=== PATIENT | female | born 1965 | race Caucasian/White ===

== ENCOUNTER 2017-10-07 09:57 | Outpatient (CLI) | payer OTHER ==
--- NOTE | 2017-10-13 11:47 | Mammography Report ---
EXAM: DIGITAL BILATERAL SCREENING MAMMOGRAM: 10/07/2017 CLINICAL INDICATION: A 52-year-old with history of late childbearing, for screening. COMPARISON: 09/2016, 07/2015, 06/2014, 07/2013, 06/2012, 07/2011, 06/2010. FINDINGS: The breasts again demonstrate heterogeneously dense fibroglandular parenchyma bilaterally. Coarse, typically benign calcifications are present. No suspicious masses, clustered microcalcifications, or regions of architectural distortion are identified. IMPRESSION: BENIGN FINDINGS. RECOMMENDATIONS: Routine annual screening unless otherwise clinically indicated. BIRADS 2 Benign findings. STANDARD QUALIFYING STATEMENTS: 1. This examination was reviewed with the aid of Computer-Aided Detection (CAD). 2. A negative or benign imaging report should not delay biopsy if clinically suspicious findings are present. Consider surgical consultation if warranted. More than 5% of cancers are not identified by imaging. 3. Dense breasts may obscure an underlying neoplasm. TD: 10/08/2017 16:57 [facility]
== END 2017-10-07 09:58 | disposition home or self-care (01) ==
LOC: DI.S 09:57
PROVIDERS: ATTEND Physician Assistant
DX: Z12.31 Encounter for screening mammogram for malignant neoplasm of breast (principal)
CPT/HCPCS: 77067

== ENCOUNTER 2018-11-03 15:58 | Outpatient (CLI) | payer OTHER ==
--- NOTE | 2018-11-04 09:21 | Mammography Report ---
Reason: ENCOUNTER FOR SCREENING MAMMOGRAM FOR MALIGNANT NE Procedure Date: 11/03/2018 Accession Number: [id number] / [id number] Procedure: JOSE A - Screening Mammo w/Dat CPT Code: FULL RESULT: EXAM: Screening Mammo w/Dat DATE: 11/03/2018 4:43 PM CLINICAL HISTORY: Screening encounter. History of late childbearing. TECHNIQUE: Bilateral CC and MLO views were obtained. COMPARISON: 10/07/2017 through 07/24/2014. FINDINGS: The breasts demonstrate heterogeneously dense fibroglandular parenchyma bilaterally. There are coarse typically benign bilateral calcifications. No suspicious masses, clustered microcalcifications, or regions of architectural distortion are identified. IMPRESSION: Benign findings RECOMMENDATION: Routine annual screening unless otherwise clinically indicated. BIRADS CATEGORY 2: Benign findings STANDARD QUALIFYING STATEMENTS: 1. This examination was not reviewed with the aid of Computer-Aided Detection (CAD). 2. A negative or benign imaging report should not preclude biopsy if clinically suspicious findings are present. 3. Dense breasts may obscure an underlying neoplasm. 4. This examination was reviewed with the aid of 3D breast imaging (tomosynthesis).
== END 2018-11-03 15:59 | disposition home or self-care (01) ==
LOC: DI 15:58
PROVIDERS: ATTEND Physician Assistant
DX: Z12.31 Encounter for screening mammogram for malignant neoplasm of breast (principal)
CPT/HCPCS: 77063; 77067

== ENCOUNTER 2019-11-09 10:05 | Outpatient (CLI) | payer BC, OTHER ==
--- NOTE | 2019-11-10 08:30 | Mammography Report ---
Reason: ROUTINE MAMMO Procedure Date: 11/09/2019 Accession Number: [id number] / [id number] Procedure: MGS - Screening Mammo Dig Bilat CPT Code: Final Report FULL RESULT: EXAM: Screening Mammo Dig Bilat DATE: 11/09/2019 10:21 AM CLINICAL HISTORY: Screening encounter. History of late childbearing. TECHNIQUE: (B) - Bilateral CC and MLO views were obtained. Left laterally exaggerated CC view is obtained. COMPARISON: 11/03/2018 through 07/24/2010. PARENCHYMAL PATTERN: (D) - The breast(s) demonstrate(s) heterogeneously dense fibroglandular parenchyma. FINDINGS: There are coarse typically benign calcifications. There are no suspicious masses, calcifications, or areas of distortion. IMPRESSION: Benign findings. BI-RADS category 2. RECOMMENDATION: (ANNUAL) - Recommend routine annual screening mammography. BI-RADS CATEGORY: (2) - Benign Findings. STANDARD QUALIFYING STATEMENTS: 1. This examination was reviewed with the aid of Computer-Aided Detection (CAD). 2. A negative or benign imaging report should not preclude biopsy if clinically suspicious findings are present. 3. Dense breasts may obscure an underlying neoplasm. 4. This examination was reviewed without the aid of 3D breast imaging (tomosynthesis).
== END 2019-11-09 10:06 | disposition home or self-care (01) ==
LOC: DI.S 10:05
PROVIDERS: ATTEND Physician Assistant
DX: Z12.31 Encounter for screening mammogram for malignant neoplasm of breast (principal)
CPT/HCPCS: 77067

== ENCOUNTER 2021-06-10 10:02 | Outpatient (CLI) | payer BC ==
--- NOTE | 2021-06-11 08:04 | Mammography Report ---
BILATERAL DIGITAL SCREENING MAMMOGRAM 3D/2D WITH EXAGGERATED CC: 06/10/2021 CLINICAL: Routine screening. Comparison is made to exams dated: 11/09/2019 mammogram, 11/03/2018 mammogram, 10/07/2017 mammogram, a nd 10/06/2016 mammogram - [facility]. The tissue of both breasts is heterogeneousl y dense. This may lower the sensitivity of mammography. There are benign calcifications in both breasts. No significant masses, calcifications, or other findings are seen in either breast. There has been no significant interval change. IMPRESSION: BENIGN There is no mammographic evidence of malignancy. A 1 year screening mammogram is recommended. This exam was interpreted at Station ID: [id number]. NOTE: For mammograms, a report in lay terms will be sent to the patient. Approximately 15% of breast malignancies will not be visualized mammographically. In the management of a palpable breast mass, a negative mammogram must not discourage biopsy of a clinically suspicious lesion. Electronically Signed By: Guero Sharpe M.D. [facility] – [place]:06/10/2021 10:45:38 ACR BI-RADS Category 2: Benign Finding(s) 3342F PARENCHYMAL PATTERN: (D) - The breast(s) demonstrate(s) heterogeneously dense fibroglandular sheri valderrama. BI-RADS CATEGORY: (2) - 2 RECOMMENDATION: (ANNUAL) - Recommend routine annual screening mammography. [id number] 1 year screening LATERALITY: (B)
== END 2021-06-10 10:03 | disposition home or self-care (01) ==
LOC: DI.S 10:02
DX: Z12.31 Encounter for screening mammogram for malignant neoplasm of breast (principal)

== ENCOUNTER 2021-10-04 08:00 | Outpatient (CLI) | payer BC ==
--- NOTE | 2021-10-06 08:35 | XRAY Report ---
PROCEDURE: Ankle 3 View LT INDICATIONS: ANKLE PAIN, LEFT TECHNIQUE: 3 views of the ankle were acquired. COMPARISON: None. FINDINGS: Bones: There is a minimally displaced oblique fracture of the distal fibular metadiaphysis. Ankle mor tise is normally aligned without widening of the medial clear space. No suspicious bony lesions. Po sterior and plantar calcaneal spurs are present. Soft tissues: Soft tissue edema is seen surrounding the ankle. IMPRESSION: Minimally displaced oblique fracture of the distal fibula. Reviewed by: Emmanuel Rothman MD on 10/06/2021 8:34 AM PST Approved by: Emmanuel Rothman MD on 10/06/2021 8:34 AM [facility] Station ID: [id number]
== END 2021-10-04 23:59 | disposition home or self-care (01) ==
LOC: DI.S 08:00
PROVIDERS: ATTEND Physician Assistant
DX: S82.432A Displaced oblique fracture of shaft of left fibula, initial encounter for closed fracture (principal)

== ENCOUNTER 2021-11-11 09:51 | Outpatient (CLI) | payer BC ==
--- NOTE | 2021-11-11 16:47 | DEXA Report ---
PROCEDURE: Dexa Spine and/or Hip INDICATIONS: FX OF LATERAL MALLEOLUS, LEFT FIBULA TECHNIQUE: Dual energy x-ray absorptiometry (DXA) was performed on a [employer] System. Regions measur ed are the AP Spine, femoral neck, and if needed forearm. COMPARISON: None. FINDINGS: Lumbar Spine: Bone Mineral Density 1.47 g/cm/cm,T score 2.4, normal bone density Left Hip: Bone Mineral Density 1.1 g/cm/cm,T score 0.6, normal bone density Impression: Normal bone density. Patients with diagnosis of osteoporosis or osteopenia should have regular bone mineral density assess ment. For those eligible for Medicare, routine testing is allowed once every 2 years. Testing frequ ency can be increased for patients who have rapidly progressing disease or for those who are receivin g medical therapy to restore bone mass. Reviewed by: Harlan Hylton MD on 11/11/2021 4:45 PM PST Approved by: Harlan Hylton MD on 11/11/2021 4:45 PM PST Station ID: [id number]
== END 2021-11-11 09:52 | disposition home or self-care (01) ==
LOC: DI 09:51
PROVIDERS: ATTEND Nurse Practitioner Family
DX: S82.65XD Nondisplaced fracture of lateral malleolus of left fibula, subsequent encounter for closed fracture with routine healing (principal)

== ENCOUNTER 2022-01-17 09:24 | Outpatient (CLI) | payer BC ==
--- NOTE | 2022-01-17 09:45 | XRAY Report ---
PROCEDURE: Hand 3 View RT INDICATIONS: Acquired trigger finger of the Middle finger TECHNIQUE: 3 views of the hand(s) acquired. COMPARISON: None FINDINGS: Bones: In this patient with this given history, scrutiny is given to the third finger. No significan t abnormality can be seen. No fractures or dislocations. No suspicious bony lesions. Focal degenerative change is seen involvi ng the first carpometacarpal joint, with milder degenerative changes seen elsewhere. Soft tissues: No suspicious soft tissue calcifications. IMPRESSION: No significant abnormality of the third finger can be seen. Reviewed by: Monty Wiggins MD on 01/17/2022 8:43 AM [facility] Approved by: Monty Wiggins MD on 01/17/2022 8:43 AM [facility] Station ID: [id number]
== END 2022-01-17 09:25 | disposition home or self-care (01) ==
LOC: DI.S 09:24
PROVIDERS: ATTEND Nurse Practitioner Family
DX: M65.331 Trigger finger, right middle finger (principal)

== ENCOUNTER 2022-09-22 09:54 | Outpatient (CLI) | payer BC ==
--- NOTE | 2022-09-23 10:34 | Mammography Report ---
BILATERAL DIGITAL SCREENING MAMMOGRAM 3D/2D: 09/22/2022 CLINICAL: Routine screening. Comparison is made to exams dated: 06/10/2021 mammogram, 11/09/2019 mammogram, 11/03/2018 mammogram, an d 10/07/2017 mammogram - . Both breasts are heterogeneously dense, which may obscure small masses (category c / 51-75% glandular tissue). There is a stable benign focal asymmetry in the right breast. There also are stable benign calcifica tions in both breasts. No significant masses, calcifications, or other findings are seen in either breast. There has been no significant interval change. IMPRESSION: BENIGN There is no mammographic evidence of malignancy. A 1 year screening mammogram is recommended. Based on the Tyrer Cuzick model (a risk assessment model) the patients lifetime risk is 14.5% and he r 10 year risk is 6.4%. According to the ACR, ACS, and NCCN guidelines, an annual breast MRI exam tereza ng with mammogram is recommended if the patients lifetime risk is 20% or greater. This exam was interpreted at Station ID: [id number]. NOTE: For mammograms, a report in lay terms will be sent to the patient. Approximately 15% of breast malignancies will not be visualized mammographically. In the management of a palpable breast mass, a negative mammogram must not discourage biopsy of a clinically suspicious lesion. Electronically Signed By: Montez Boykin M.D. acr/penrad:09/22/2022 12:53:12 ACR BI-RADS Category 2: Benign Finding(s) 3342F PARENCHYMAL PATTERN: (D) - The breast(s) demonstrate(s) heterogeneously dense fibroglandular parumang valderrama. BI-RADS CATEGORY: (2) - 2 RECOMMENDATION: (ANNUAL) - Recommend routine annual screening mammography. [id number] 1 year screening LATERALITY: (B)
== END 2022-09-22 09:55 | disposition home or self-care (01) ==
LOC: DI.S 09:54
PROVIDERS: ATTEND Nurse Practitioner Family
DX: Z12.31 Encounter for screening mammogram for malignant neoplasm of breast (principal)

== ENCOUNTER 2023-01-18 09:16 | Emergency (ER) | payer BC ==
--- OUTSIDE RECORDS SUMMARY | 2023-01-18 09:36 | EXTERNAL MEDICAL SUMMARY RPT | Continuity of Care Document ---
:1965 Author Organization [place] Address [address] [place] [address] Phone Care Team Providers Name Role Phone Unavailable Unavailable Unavailable Dustin, Provider Unavailable Unavailable Allergies No information. Encounters No information. Functional Status No information. Immunizations No information. Medications No information. Problems date description facility 2022-12-28 00:00 Contusion of face [facility] & Ancillary Services [facility] 2022-12-28 00:00 Abrasion of scalp [facility] & Anc[facility] Services [facility] 2022-12-28 00:00 Abrasion or friction burn of face, [facility] Primary Care & neck, and scalp except eye, without Anci llary Services [facility] mention of infection 2022-12-28 00:00 Contusion of face, scalp, and neck [facility] Primary Care & except eye(s) Ancillary Services [facility] 2022-12-28 00:00 Abrasion of scalp, initial [facility] Care & encounter [facility] 2022-12-28 00:00 Contusion of other part of head, [facility] Primary Care & initial encounter [facility] 2022-12-31 00:00 Other and unspecified [facility] P rimary Care & hyperlipidemia [facility] 2022-12-31 00:00 Hyperlipidemia [facility] & [facility] Services [facility] 2022-12-31 00:00 Hyperlipidemia, unspecified [facility] & [facility] Procedures date description facility 2022-12-28 00:00 Visit Code Hold [facility] & [facility] 2022-12-28 00:00 First Ix admin via ID IM or jet [facility] & injects with counseling by Ancillary Ser denise So physician for adult 2022-12-28 00:00 Boostrix Intramuscular Suspension [facility] Primary Care & 5-2.5-18.5 Ancillary Services [facility] Results/Labs No information. Social History date description facility 2022-12-28 00:00 Never smoker [facility] Vital Signs date measurement value units 2022-12-28 00:00 BMI 30.29 kg/m2 2022-12-28 00:00 BP_diastolic 90 mmHg 2022-12-28 00:00 BP_systolic 163 mmHg 2022-12-28 00:00 heart_rate 84 /min 2022-12-28 00:00 height_metric 164.47 cm 2022-12-28 00:00 height_standard 64.75 in 2022-12-28 00:00 respiration_rate 16 /min 2022-12-28 00:00 temperature_metric 36.11 C 2022-12-28 00:00 temperature_standard 97 F 2022-12-28 00:00 weight_metric 81.65 kg 2022-12-28 00:00 weight_standard 180 lb
--- NOTE | 2023-01-18 10:04 | ED Physician Documentation ---
PD HPI HEAD INJURY - Stated complaint Stated Complaint: H/A,NECK PX S/P HEAD INJURY 3 WEEKS AGO - Chief complaint Chief Complaint: Trauma Hd/Nk - History obtained from History obtained from: Patient - Additional information Additional information: The patient comes to the emergency department chief complaint of ongoing headache and left neck and shoulder pain since a fall on concrete 3 weeks ago. The patient states that the fall came about because she tripped and lurched forward but and reacting, flailed backward and ended up falling backward onto the concrete. She states she struck her head on the concrete and while she did not lose consciousness, she sustained a laceration to her posterior scalp. She states she also began to develop the left neck pain shortly after the fall. She was seen a couple of days later in urgent care and was told she had a concussion at that time. She was given Flexeril for her neck, which she states has not really helped, though she is taking only 5 mg. She is also been taking Tylenol for the headaches, and states that while the headaches have not gotten worse, they really have not gotten better. She also states that the left lateral neck pain and shoulder pain have gotten quite a bit worse. She indicates that the pain is coming down through the musculature on the left side of her neck and through her trapezius ridge. She also points to her left anterior superior chest wall as another source of the pain. She states she has chronic left shoulder pain and sees a massage therapist for this and also, has an appointment coming up on February 05 at [facility] to address her shoulder. She states she is not sure if the pain she usually has in the shoulder is worse but more, that the musculature surrounding it is painful now. She did not have any increased shoulder pain immediately after the fall. The patient denies any swelling. No numbness or tingling in any of her extremities. No nausea or vomiting. She states she has been having some issues with increased pain at night, and also, with vertigo that she feels when she rolls over in bed or first gets up from bed in the morning. She also notices the vertigo if she bends over to pick something up or tie her shoe. She states that walking around and normal movements of her head do not seem to trigger it. No other complaints at this time. PD PAST MEDICAL HISTORY - Present Medications Home Medications: Ambulatory Orders Medication Instructions Recorded Confirmed Cyclobenzaprine HCl 5 mg PO TID PRN 01/18/23 01/18/23 Meclizine HCl [Antivert] 25 - 50 mg PO Q8H PRN #10 tablet 01/18/23 diazePAM [Valium] 5 mg PO TID PRN #15 tablet 01/18/23 - Allergies Allergies/Adverse Reactions: Allergies Allergy/AdvReac Type Severity Reaction Status Date / Time No Known Drug Allergies Allergy Verified 01/18/23 09:29 PD ED PE NORMAL - Vitals Vital signs reviewed: Yes - General General: Alert and oriented X 3, No acute distress, Well developed/nourished - HEENT HEENT: PERRL, EOMI, Moist mucous membranes, Other (Healing wound to the scalp posteriorly. No erythema or bony deformity surrounding the wound.) - Neck Neck: Supple, no meningeal sign, No bony TTP, Other (Tenderness palpation at the base of the patient's skull bilaterally and extending down over the trapezius distribution on the left. No AC joint tenderness. No deformity.) - Cardiac Cardiac: RRR, No murmur, Strong equal pulses - Respiratory Respiratory: No respiratory distress, Clear bilaterally - Derm Derm: Normal color, Warm and dry, No rash - Extremities Extremities: No deformity, Other (L shoulder: normal forward flexion range of motion, but abduction is limited to about 90 degrees. Mild limitation of internal rotational range of motion.) - Neuro Neuro: Alert and oriented X 3, No motor deficit, No sensory deficit - Psych Psych: Normal mood, Normal affect Results - Vitals Vitals: Vital Signs - 24 hr 01/18/23 01/18/23 11:52 12:27 Heart Rate 80 79 Respiratory 14 20 Rate Blood Pressure 135/70 H O2 Saturation 99 100 Oxygen O2 Source Room air - Rads (name of study) Ct head Relevant Findings:: Final report received, See rad report (nad) Ct c-spine Relevant Findings:: Final report received, See rad report (neg) PD Medical Decision Making - ED course Complexity details: reviewed results, re-evaluated patient, considered differential, d/w patient ED course: The patient was very well-appearing in the emergency department but considering her ongoing symptoms, I did send her for CT scans of the head and neck, which were negative. We have discussed that a steroid injection may be helpful when she goes to see her orthopedist. At that time, she may also discuss MRI of the neck if the neck symptoms have not abated. The patient has been on prednisone before and states that it makes her "crazy" and does not want to try an oral course for her symptoms. We have discussed meclizine for the vertigo. Departure - Departure Disposition: 01 Home, Self Care Clinical Impression: Cervical strain Qualifiers: Encounter type: initial encounter Qualified Code(s): S16.1XXA - Strain of muscle, fascia and tendon at neck level, initial encounter Closed head injury Qualifiers: Encounter type: initial encounter Qualified Code(s): S09.90XA - Unspecified injury of head, initial encounter Condition: Stable Instructions: ED Sprain Strain Neck Prescriptions: Meclizine HCl [Antivert] 25 - 50 mg PO Q8H PRN #10 tablet PRN Reason: Vertigo diazePAM [Valium] 5 mg PO TID PRN #15 tablet PRN Reason: Vertigo Comments: Your CT scans look good today. Most likely, you have strained your neck when you fell and hit your head and either have some nerve compression or some muscle spasm that is causing the pains going down the side of your neck. You may have both. At this point in time, the best plan is to probably give it a little more time to get better on its own. You should continue your plan to follow-up for your massage and you may continue to take ibuprofen and Tylenol if needed. Prescriptions for medications for the vertigo have been electronically transmitted to the [facility] in [place]. You should continue your plans to follow-up with orthopedics in mid January as you are scheduled to do and if your neck is still bothering you at that time, you may talk to them about MRI, cortisone shots, or any other recommendations they may have. Discharge Date/Time: 01/18/23 12:30
[2023-01-18 12:28] VITALS: BP 135/70
--- NOTE | 2023-01-18 13:45 | CT Report ---
PROCEDURE: HEAD WO INDICATIONS: fall/head injury/ongoing headache x 3 wks TECHNIQUE: Noncontrast 4.5 mm thick angled axial sections acquired from the foramen magnum to the vertex. For r adiation dose reduction, the following was used: automated exposure control, adjustment of mA and/or kV according to patient size. COMPARISON: None. FINDINGS: Image quality: Excellent. CSF spaces: Basal cisterns are patent. No extra-axial fluid collections. Ventricles are normal in size and shape. Brain: No midline shift. Incidental calcified meningioma to the right of midline off the falx anter iorly without any mass effect. No other intracranial masses or hemorrhage. Jones-white matter interfa ce is normal. Age-related volume loss. Intracranial carotid calcifications. Skull and face: Calvarium and visualized facial bones are intact, without suspicious lesions. Sinuses: Visualized sinuses and mastoids are clear. IMPRESSION: No evidence acute intracranial abnormality. Incidental small calcified meningioma. Reviewed by: Teo Pérez MD on 01/18/2023 10:38 AM PDT Approved by: Teo Pérez MD on 01/18/2023 10:38 AM PDT Station ID: [id number]
--- NOTE | 2023-01-18 13:45 | CT Report ---
PROCEDURE: CERVICAL SPINE WO INDICATIONS: fall/head injury/ongoing neck pain TECHNIQUE: Noncontrast 3 mm thick sections acquired from the skull base to the T4 level. Sagittal and coronal r eformats were then constructed. For radiation dose reduction, the following was used: automated exp osure control, adjustment of mA and/or kV according to patient size. COMPARISON: None. FINDINGS: Image quality: Excellent. Bones: No fractures or dislocations. Visualized superior ribs are intact. Left greater than right facet arthropathy, most notably involving the left C2-C3 through C4-C5 facets. Soft tissues: Prevertebral soft tissues are normal in thickness. No paravertebral hematomas. No ap ical pneumothoraces. IMPRESSION: 1. No evidence acute cervical fracture or dislocation. 2. Cervical spondylitic change. Reviewed by: Teo Pérez MD on 01/18/2023 10:40 AM PDT Approved by: Teo Pérez MD on 01/18/2023 10:40 AM PDT Station ID: [id number]
== END 2023-01-18 12:30 | disposition home or self-care (01) ==
LOC: ED 09:16
DX: S09.90XA Unspecified injury of head, initial encounter (principal); S16.1XXA Strain of muscle, fascia and tendon at neck level, initial encounter; W01.0XXA Fall on same level from slipping, tripping and stumbling without subsequent striking against object, initial encounter
CPT/HCPCS: 99283; 99284

== ENCOUNTER 2023-02-10 09:42 | Outpatient (CLI) | payer BC ==
--- NOTE | 2023-02-10 17:14 | MRI Report ---
PROCEDURE: SHOULDER WO - LT INDICATIONS: DERANGEMENT OF LEFT SHOULDER TECHNIQUE: Noncontrast oblique coronal T2 fast spin echo with fat saturation, oblique sagittal T1 spin echo and T2 fast spin echo with fat saturation, axial T1 spin echo and T2 fast spin echo with fat saturation t hrough the shoulder. COMPARISON: None. FINDINGS: Image quality: Excellent. Rotator cuff: Moderate grade articular and bursal surface partial-thickness tear involving distal sup raspinatus at its insertion on humeral head is seen extending to musculotendinous junction. Amorphous calcifications are also seen involving anterior fibers of distal supraspinatus adjacent to greater t rochanter suggestive of hydroxyapatite deposition disease. Low-grade articular and bursal surface par tial-thickness tear involving distal infraspinatus is also seen extending to musculotendinous junctio n. Distal subscapularis tendinosis is noted. No full-thickness rotator cuff tendon rupture. Mild supr aspinatus muscle atrophy is seen on sagittal images. Bones and bursae: Moderate acromioclavicular joint osteoarthritic changes are noted with joint space narrowing, subchondral sclerosis and edema and downward osteophyte formation depressing on musculoten dinous junction of supraspinatus. Mild to moderate glenohumeral joint osteoarthritic changes also see n. Nonspecific marrow edema involving greater tuberosity of humeral head near rotator cuff tendon ins ertion without definite fracture line. Small amount of subacromial subdeltoid bursal fluid is seen. Capsule and soft tissues: There is signal abnormality and contour irregularity involving superior ant erior labrum at 12 to 2:00 position suggestive of subtle superior anterior labral tear. The long head of the biceps tendon appears thickened. The rotator interval appears normal, without fibrosis. The coracohumeral ligament is normal in thickness. IMPRESSION: 1. Moderate grade articular and bursal surface partial-thickness tear involving distal supraspinatus extending to musculotendinous junction. Suggestion of calcific tendinitis involving anterior fibers o f distal supraspinatus at its insertion on humeral head. Low-grade articular and bursal surface parti al-thickness involving distal infraspinatus extending to musculotendinous junction. Distal subscapula ris tendinosis. No full-thickness rotator cuff tendon rupture. Mild supraspinatus muscle atrophy. 2. Moderate acromioclavicular joint osteoarthritis and mild to moderate glenohumeral joint osteophyte is. Bony contusion involving greater tuberosity of humeral head. No fracture or dislocation. Small a mount of subacromial subdeltoid bursal fluid. 3. Suggestion of superior anterior labral tear at 12 to 1:00 position. 4. Proximal long head of biceps tendinosis. Reviewed by: Travis Ashby MD on 02/10/2023 5:13 PM PDT Approved by: Travis Ashby MD on 02/10/2023 5:13 PM PDT Station ID: [id number]
== END 2023-02-10 09:43 | disposition home or self-care (01) ==
LOC: DI 09:42
PROVIDERS: ATTEND Orthopaedic Surgery
DX: M75.112 Incomplete rotator cuff tear or rupture of left shoulder, not specified as traumatic (principal); M19.012 Primary osteoarthritis, left shoulder; M67.922 Unspecified disorder of synovium and tendon, left upper arm

== ENCOUNTER 2023-04-30 11:54 | Outpatient (CLI) | payer BC ==
--- NOTE | 2023-04-30 18:43 | Ultrasound Report ---
PROCEDURE: Duplex Ext Veins Right INDICATIONS: PAIN IN RIGHT LEG TECHNIQUE: Real-time imaging, as well as color and pulse Doppler interrogation, were performed of the lower extr emity deep veins from the inguinal ligament to the popliteal fossa. COMPARISON: None. FINDINGS: The deep veins are normally compressible, and free of intraluminal thrombus. Color and pu lse Doppler demonstrate normal phasic intraluminal flow. There is normal augmentation response to di stal compression maneuver. IMPRESSION: No evidence of deep venous thrombosis, right lower extremity Reviewed by: Andres Rivera MD on 04/30/2023 5:41 PM QUINTEN Approved by: Andres Rivera MD on 04/30/2023 5:41 PM QUINTEN Station ID: [id number]
== END 2023-04-30 11:55 | disposition home or self-care (01) ==
LOC: DI 11:54
PROVIDERS: ATTEND Nurse Practitioner Family
DX: M79.604 Pain in right leg (principal)

== ENCOUNTER 2023-10-07 07:56 | Outpatient (CLI) | payer BC ==
--- NOTE | 2023-10-07 14:02 | MRI Report ---
PROCEDURE: FOOT WO - RT INDICATIONS: CHRONIC PAIN TECHNIQUE: Noncontrast sagittal T1 spin echo and T2 fast spin echo with fat saturation, long-axis T1 spin echo a nd T2 fast spin echo with fat saturation, short-axis proton density fast spin echo and T2 fast spin e cho with fat saturation through the forefoot. COMPARISON: None. FINDINGS: Image quality: Diagnostic. Motion is noted. 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 Subcortical T2 hyperintense area involving dorsal and medial aspect of first metatarsal head and may represent a subcortical cyst formation. Osteoarthritic changes also noted involving jonny culation between the first metatarsal head and sesamoids. Mild marrow edema involving medial and late ral sesamoids of first metatarsal head. No acute fracture or dislocation. No metatarsal stress fractu res. No suspicious intraosseous lesion. Soft tissues: Extensor and flexor tendons are grossly intact. Lisfranc ligament is intact. The visual ized plantar foot muscles are normal in signal. Thickened medial collateral ligament of first MTP brad nt is seen. Evaluation of plantar plates is markedly limited due to significant patient motion. No full-thickness plantar plate rupture is identified. IMPRESSION: 1. 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 Mild edema versus subcortical cystic changes involving m edial and dorsal aspect of first metatarsal head. Mild edema is also seen involving medial sesamoid o f first metatarsal head concerning for medial sesamoiditis. 2. Sprain/moderate grade partial thickness tear involving medial collateral ligament of first MTP brad nt. Flexor and extensor tendons are grossly intact. 3. Limited evaluation of sagittal images shows no definite full-thickness plantar plate rupture. Reviewed by: Travis Ashby MD on 10/07/2023 2:01 PM PST Approved by: Travis Ashby MD on 10/07/2023 2:01 PM PST Station ID: [id number]
== END 2023-10-07 07:57 | disposition home or self-care (01) ==
LOC: DI 07:56
PROVIDERS: ATTEND Podiatrist
DX: M19.071 Primary osteoarthritis, right ankle and foot (principal); S93.691A Other sprain of right foot, initial encounter; R60.0 Localized edema

== ENCOUNTER 2023-11-08 09:45 | Outpatient (CLI) | payer BC ==
--- NOTE | 2023-11-09 15:37 | Mammography Report ---
BILATERAL DIGITAL SCREENING MAMMOGRAM 3D/2D: 11/08/2023 CLINICAL: Routine screening. Comparison is made to exams dated: 09/22/2022 mammogram, 11/09/2019 mammogram, and 06/10/2021 mammogra m - [facility]. Both breasts are heterogeneously dense, which may obscure small masses (category c / 51-75% glandular tissue). There is a stable benign focal asymmetry in the right breast. There also are stable benign calcifica tions in both breasts. No significant masses, calcifications, or other findings are seen in either breast. There has been no significant interval change. IMPRESSION: BENIGN There is no mammographic evidence of malignancy. A 1 year screening mammogram is recommended. Based on the Tyrer Cuzick model (a risk assessment model) the patients lifetime risk is 14.3% and her 10 year risk is 6.6%. According to the ACR, ACS, and NCCN guidelines, an annual breast MRI exam glen g with mammogram is recommended if the patients lifetime risk is 20% or greater. This exam was interpreted at Station ID: [id number]. NOTE: For mammograms, a report in lay terms will be sent to the patient. Approximately 15% of breast malignancies will not be visualized mammographically. In the management of a palpable breast mass, a negative mammogram must not discourage biopsy of a clinically suspicious lesion. Electronically Signed By: Juli hannon/alcon:11/08/2023 12:42:58 ACR BI-RADS Category 2: Benign Finding(s) 3342F PARENCHYMAL PATTERN: (D) - The breast(s) demonstrate(s) heterogeneously dense fibroglandular parumang valderrama. BI-RADS CATEGORY: (2) - 2 Mammogram [id number] 1 year screening LATERALITY: (B)
== END 2023-11-08 09:46 | disposition home or self-care (01) ==
LOC: DI.S 09:45
PROVIDERS: ATTEND Nurse Practitioner Family
DX: Z12.31 Encounter for screening mammogram for malignant neoplasm of breast (principal); R92.333 Mammographic heterogeneous density, bilateral breasts